=== PATIENT | male | born 1950 | race Caucasian/White ===

== ENCOUNTER 2021-03-18 17:01 | Observation (INO) ==
[2021-03-18 18:03] LABS: ABS Basophils 0.1 10^3/ul (0-0.2); ABS Eosinophils 0.1 10^3/ul (0-0.6); ABS Lymphocytes 1.2 10^3/ul (1.0-4.8); ABS Monocytes 1.2 10^3/ul (0-0.8); ABS Neutrophils 12.7 10^3/ul (1.5-7.7); Eosinophil % 0.4 %; Hematocrit 46 % (42-52); Hemoglobin 15.8 g/dL (14.0-18.0); Mean Corpuscular HGB Conc 35 g/dL (31-36); Mean Corpuscular Hemoglobin 32 pg (27-31); Mean Corpuscular Volume 91 fL (80-94); Mean Platelet Volume 8.4 fL (7.4-10.4); Platelet Count 242 10^3/uL (150-450); Red Blood Count 5.01 10^6 /uL (4.18-5.48); Red Cell Distribution Width 14 % (10-15); White Blood Count 15.3 10^3/uL (3.5-10.8)
[2021-03-18 18:23] LABS: Albumin 4.5 g/dL (3.2-5.2); Albumin/Globulin Ratio 1.9 (1-3); C Reactive Protein 38.95 mg/L (<8.01); Calcium 9.9 mg/dL (8.6-10.3); Globulin 2.4 g/dL (2-4); Potassium 3.9 mmol/L (3.5-5.0); Total Bilirubin 0.8 mg/dL (0.2-1.0); Total Protein 6.9 g/dL (6.4-8.9); eGFR CKD-EPI 43.5 (>60)
[2021-03-18 18:39] LABS: Urine Appearance Clear; Urine Bilirubin Negative (Negative); Urine Blood Negative (Negative); Urine Color Yellow; Urine Glucose Negative (Negative); Urine Ketones 1+ (Negative); Urine Nitrite Negative (Negative); Urine Protein Negative (Negative); Urine Specific Gravity 1.016 (1.002-1.030); Urine Urobilinogen Negative (Negative)
[2021-03-18] MEDS ORDERED: cefTRIAXone 2 GM ADDV.VIAL 2 GM in NS 0.9% 100 ml BAG 100 ML IVPB ONE (19:17)
[2021-03-18] MEDS ORDERED: Lactated Ringers 1000 ml BAG 1,000 ML IV ONE (19:17)
[2021-03-18] MEDS ORDERED: Morphine 4 MG/ML VIAL (1 ml) IV ONE (20:14)
[2021-03-18] MEDS ORDERED: Iohexol 180 (CONTRAST) 10 ML SDV IV ONE (21:07)
[2021-03-18] MEDS ORDERED: Propofol 10 MG/ML 20 ML BTL ONE (21:11)
[2021-03-18] MEDS ORDERED: Ondansetron 4 mg VIAL 2 MG/ML 2 ml VIAL ONE (21:11)
[2021-03-18] MEDS ORDERED: Lidocaine 2% PF 5 ML VIAL ONE (21:11)
[2021-03-18] MEDS ORDERED: Dexamethasone IV 4 MG/ML VIAL 1 ml VIAL ONE (21:11)
[2021-03-18] MEDS ORDERED: Rocuronium 50 mg VIAL 10 mg/ml 5 ml VIAL (50 mg) ONE (21:12)
[2021-03-18] MEDS ORDERED: Acetaminophen IV 1 GM/100ML 100 ML IV ONE (21:47)
[2021-03-18] MEDS ORDERED: Ondansetron 4 mg VIAL 2 MG/ML 2 ml VIAL IV PRN (22:34)
[2021-03-18] MEDS ORDERED: HYDROmorphone 1 MG/1 ML SYRINGE IV PRN (22:34)
[2021-03-18] MEDS ORDERED: Naloxone 0.4 mg VIAL 0.4 mg/ml 1 ml VIAL IV PRN (22:34)
[2021-03-18] MEDS: AZTREONAM 2 GM x ONCE IVPB ONE ×2 (22:35)
[2021-03-18 22:36] LABS: Rapid COVID-19 Molecular Undetected (Undetected)
[2021-03-19] MEDS ORDERED: Lactated Ringers 1000 ml BAG 1,000 ML IV SCH (00:46)
[2021-03-19] MEDS ORDERED: Ondansetron 4 mg VIAL 2 MG/ML 2 ml VIAL IV PRN (01:01)
[2021-03-19 06:10] LABS: ABS Lymphocytes 0.5 10^3/ul (1.0-4.8); ABS Monocytes 0.5 10^3/ul (0-0.8); ABS Neutrophils 12.5 10^3/ul (1.5-7.7); Hematocrit 42 % (42-52); Hemoglobin 14.2 g/dL (14.0-18.0); Lymphocyte % 3.9 %; Mean Corpuscular HGB Conc 34 g/dL (31-36); Mean Corpuscular Hemoglobin 31 pg (27-31); Mean Corpuscular Volume 92 fL (80-94); Mean Platelet Volume 8.7 fL (7.4-10.4); Platelet Count 218 10^3/uL (150-450); Red Blood Count 4.55 10^6 /uL (4.18-5.48); Red Cell Distribution Width 14 % (10-15); White Blood Count 13.6 10^3/uL (3.5-10.8)
[2021-03-19 06:33] LABS: Calcium 8.9 mg/dL (8.6-10.3); Potassium 4.9 mmol/L (3.5-5.0); eGFR CKD-EPI 68.3 (>60)
[2021-03-19 06:43] LABS: Magnesium 1.8 mg/dL (1.9-2.7)
[2021-03-19] MEDS ORDERED: Magnesium Sulfate 2 gm BAG 2 GM/50 ML BAG IVPB ONE (07:24)
[2021-03-19] MEDS ORDERED: GENTAMICIN ADULT IVPB ONE (08:00)
[2021-03-19] MEDS ORDERED: NS 0.9% IVPB ONE (08:00)
[2021-03-19 08:19] VITALS: BP 120/68
[2021-03-19] MEDS ORDERED: cefTRIAXone 1 gm/50 mL NS BAG 1 GM/50 ML BAG IVPB ONE (15:00)
[2021-03-19] MEDS ORDERED: Enoxaparin 40 MG/0.4 ML SYR SUBCUT SCH (15:00)
[2021-03-19] MEDS ORDERED: cefTRIAXone 1 gm/50 mL NS BAG 1 GM/50 ML BAG IVPB SCH (20:00)
[2021-03-19] MEDS ORDERED: cefTRIAXone 2 GM ADDV.VIAL 2 GM in NS 0.9% 100 ml BAG 100 ML IV SCH (20:00)
== END 2021-03-19 11:10 | disposition home or self-care (01) ==
LOC: ED 17:01 → SSU 20:00 → OR 20:00 → SSU 23:40
PROVIDERS: ADMIT Internal Medicine; ATTEND Internal Medicine